=== PATIENT | female | born 1980 | race African-American/Black ===

== ENCOUNTER 2018-09-08 06:05 | Inpatient (IN) ==
[~2018-09-08 06:05] MED LIST: ALBUTEROL 2.5 MG/3 ML NEB RESP TX ONE; DEXAMETHASONE 4 MG/1 ML VIAL IV ONE; FAMOTIDINE 20 MG/2 ML VIAL IV ONE; LACTATED RINGERS 1,000 ML IV SCH; LORazepam 0.5 MG TABLET PO ONE; ONDANSETRON 4 MG/2 ML VIAL IV ONE; SCOPOLAMINE 1.5 MG PATCH TRANSDERM ONE
[2018-09-08] MEDS ORDERED: LIDOCAINE 1%/EPI INJ 20 ML VIAL ONE (06:31)
[2018-09-08] MEDS ORDERED: DEXAMETHASONE 4 MG/1 ML VIAL IV ONE (07:00)
[2018-09-08] MEDS ORDERED: LORazepam 1 MG TABLET ONE (08:39)
[2018-09-08] MEDS ORDERED: SCOPOLAMINE 1.5 MG PATCH TRANSDERM ONE (08:39)
[2018-09-08] MEDS ORDERED: FAMOTIDINE 20 MG/2 ML VIAL IV ONE (08:40)
[2018-09-08] MEDS ORDERED: ONDANSETRON 4 MG/2 ML VIAL ONE ×2 (08:43→12:10)
[2018-09-08] MEDS ORDERED: LORazepam 0.5 MG TABLET ONE (08:46)
[2018-09-08] MEDS ORDERED: cefTRIAXone 1,000 MG in SYRINGE 1 EACH IV ONE (10:35)
[2018-09-08] MEDS ORDERED: cefTRIAXone 1,000 MG VIAL ONE (10:35)
[2018-09-08] MEDS ORDERED: MORPHINE 4 MG/1 ML VIAL IV PRN (11:23)
[2018-09-08] MEDS ORDERED: ALBUTEROL 2.5 MG/3 ML NEB RESP TX PRN (11:32)
[2018-09-08] MEDS ORDERED: CETIRIZINE 10 MG TABLET PO PRN (11:32)
[2018-09-08] MEDS ORDERED: ALBUTEROL SULFATE 2.5 MG IH PRN (11:32)
[2018-09-08] MEDS ORDERED: ALBUTEROL 1.25 MG/3 ML NEB RESP TX ONE ×2 (11:56→12:16)
[2018-09-08] MEDS ORDERED: HYDROmorphone 2 MG/1 ML VIAL ONE (12:10)
[2018-09-08] MEDS ORDERED: ONDANSETRON 4 MG/2 ML VIAL IV PRN (12:15)
[2018-09-08] MEDS: HYDROmorphone 2 MG/1 ML VIAL IV PRN ×2 (12:15→12:35)
[2018-09-08] MEDS ORDERED: MIDAZOLAM 2 MG/2 ML VIAL ONE ×2 (14:07→14:09)
[2018-09-08] MEDS ORDERED: SEVOFLURANE 1 UNIT/15 MINUTE INH ONE (14:07)
[2018-09-08] MEDS ORDERED: PROPOFOL 200 MG/20 ML VIAL IV ONE (14:07)
[2018-09-08] MEDS ORDERED: MINERAL OIL/PETROLATUM OPH OINT 3.5 GM TUBE ONE (14:07)
[2018-09-08] MEDS ORDERED: fentaNYL 100 MCG/2 ML VIAL ONE (14:07)
[2018-09-08] MEDS ORDERED: METOPROLOL TARTRATE 5 MG/5 ML VIAL IV ONE (14:08)
[2018-09-08] MEDS ORDERED: ROCURONIUM 100 MG/10 ML VIAL IV ONE (14:08)
[2018-09-08] MEDS ORDERED: SUCCINYLCHOLINE 200 MG/10 ML VIAL ONE (14:08)
[2018-09-08] MEDS ORDERED: LACTATED RINGERS 1,000 ML IV ONE (14:08)
[2018-09-08] MEDS ORDERED: hydrALAZINE 20 MG/1 ML VIAL ONE (14:08)
[2018-09-08] MEDS: LACTATED RINGERS 1,000 ML IV SCH (15:04)
[2018-09-08] MEDS: ONDANSETRON 4 MG/2 ML VIAL IV PRN (15:17)
[2018-09-08] MEDS: ACETAMINOPHEN/CODEINE 300-30 MG TABLET PO PRN (19:28)
[2018-09-08] MEDS: CALCIUM CARBONATE CHEW 500 MG TABLET PO SCH (20:52)
[2018-09-08] MEDS: FAMOTIDINE 20 MG TABLET PO SCH (20:54)
[2018-09-08] MEDS: QUEtiapine 25 MG TABLET PO SCH (20:55)
[2018-09-08] MEDS: ACYCLOVIR 200 MG CAPSULE PO SCH (20:55)
[2018-09-08] MEDS: OXcarbazepine 300 MG TABLET PO SCH (20:56)
[2018-09-08] MEDS: DEXAMETHASONE 4 MG/1 ML VIAL IV SCH (20:56)
[2018-09-08] MEDS: cefTRIAXone 1,000 MG in SYRINGE 1 EACH IV SCH (21:35)
[2018-09-09] MEDS: ALBUTEROL/IPRATROPIUM 3 ML NEB RESP TX SCH ×4 (00:35→19:18)
[2018-09-09] MEDS: ACETAMINOPHEN/CODEINE 300-30 MG TABLET PO PRN ×2 (01:41→08:03)
[2018-09-09] MEDS: ONDANSETRON 4 MG/2 ML VIAL IV PRN (01:42)
[2018-09-09] MEDS: DEXAMETHASONE 4 MG/1 ML VIAL IV SCH ×2 (04:04→12:11)
[2018-09-09] MEDS ORDERED: ACYCLOVIR 400 MG PO SCH (09:00)
[2018-09-09] MEDS: POTASSIUM CHLORIDE 10 MEQ TABLET PO SCH (09:38)
[2018-09-09] MEDS: CHOLECALCIFEROL 1,000 UNIT TABLET PO SCH (09:39)
[2018-09-09] MEDS: CALCIUM CARBONATE CHEW 500 MG TABLET PO SCH ×2 (09:39→21:20)
[2018-09-09] MEDS: QUEtiapine 25 MG TABLET PO SCH ×2 (09:39→21:21)
[2018-09-09] MEDS: FAMOTIDINE 20 MG TABLET PO SCH ×2 (09:39→21:21)
[2018-09-09] MEDS: OXcarbazepine 300 MG TABLET PO SCH ×2 (09:39→21:21)
[2018-09-09] MEDS: MONTELUKAST 10 MG TABLET PO SCH (09:39)
[2018-09-09] MEDS: ACYCLOVIR 200 MG CAPSULE PO SCH ×2 (09:40→21:20)
[2018-09-09] MEDS: PANTOPRAZOLE 40 MG TABLET PO SCH (09:40)
[2018-09-09] MEDS: TRIAMTERENE/HCTZ 37.5-25 MG TABLET PO SCH (09:40)
[2018-09-09] MEDS: cefTRIAXone 1,000 MG in SYRINGE 1 EACH IV SCH (09:42)
[2018-09-09] MEDS: FLUTICASONE 50 MCG NASAL SPRAY 16 GM BOTTLE BOTH NARES SCH (09:43)
[2018-09-09] MEDS ORDERED: ONDANSETRON 4 MG TABLET PO PRN (12:42)
[2018-09-09] MEDS: AMOXICILLIN/CLAV 875 MG TABLET PO SCH (21:20)
[2018-09-09] MEDS: DEXAMETHASONE 4 MG TABLET PO SCH (21:21)
[2018-09-10] MEDS: ACETAMINOPHEN/CODEINE 300-30 MG TABLET PO PRN ×2 (00:28→11:12)
[2018-09-10] MEDS: ALBUTEROL/IPRATROPIUM 3 ML NEB RESP TX SCH ×3 (01:20→12:20)
[2018-09-10] MEDS ORDERED: ALBUTEROL/IPRATROPIUM 3 ML NEB RESP TX ONE (08:57)
[2018-09-10 09:05] LABS: Hematocrit 34.9 VOL% (35.7-47.0); Hemoglobin 10.7 GM/DL (12.0-16.0); Immature Granulocytes % 0.4 %; Immature Granulocytes Absolute 0.02 #; Lymphocytes # 0.8 10*3/uL (1.4-4.0); Lymphocytes % 15.4 % (21.3-54.2); Mean Corpuscular HGB Conc 30.7 GM/DL (32-36); Mean Corpuscular Hemoglobin 29 PG (27-34); Mean Corpuscular Volume 93.1 FL (87-102); Mean Platelet Volume 10.6 FL (9.6-12.0); Monocytes # 0.3 10*3/uL (0.11-0.8); Monocytes % 5.2 % (1.7-12.7); Neutrophils # 3.9 10*3/uL (1.4-7.4); Platelet Count 213 T/CUMM (130-400); Red Blood Count 3.75 MC/CUMM (3.8-5.5); Red Cell Distribution Width 13.6 % (9.3-17.3)
[2018-09-10 09:28] LABS: Calcium 8.6 MG/DL (8.5-10.1); Osmolality,Calculated 282.5 MOS/KG (273-304); Potassium 3.7 MMOL/L (3.5-5.1)
[2018-09-10 10:01] LABS: ABG Base Excess 0.2 MMOL/L (-2.5-2.5); ABG HCO3 24.6 MMOL/L (20-26); ABG Oxygen Saturation 97.3 % (95-100); ABG PCO2 37.3 MM HG (35-48); ABG PH 7.422 (7.35-7.45); ABG PO2 93.1 MM HG (80-95); ABG TCO2 21.9 MMOL/L (23-27)
[2018-09-10] MEDS: TRIAMTERENE/HCTZ 37.5-25 MG TABLET PO SCH (11:10)
[2018-09-10] MEDS: PANTOPRAZOLE 40 MG TABLET PO SCH (11:10)
[2018-09-10] MEDS: AMOXICILLIN/CLAV 875 MG TABLET PO SCH (11:11)
[2018-09-10] MEDS: CALCIUM CARBONATE CHEW 500 MG TABLET PO SCH (11:11)
[2018-09-10] MEDS: FAMOTIDINE 20 MG TABLET PO SCH (11:11)
[2018-09-10] MEDS: CHOLECALCIFEROL 1,000 UNIT TABLET PO SCH (11:11)
[2018-09-10] MEDS: MONTELUKAST 10 MG TABLET PO SCH (11:11)
[2018-09-10] MEDS: QUEtiapine 25 MG TABLET PO SCH (11:12)
[2018-09-10] MEDS: OXcarbazepine 300 MG TABLET PO SCH (11:12)
[2018-09-10] MEDS: ACYCLOVIR 200 MG CAPSULE PO SCH (11:12)
[2018-09-10] MEDS: DEXAMETHASONE 4 MG TABLET PO SCH (11:12)
[2018-09-10] MEDS: POTASSIUM CHLORIDE 10 MEQ TABLET PO SCH (11:13)
[2018-09-10] MEDS: FLUTICASONE 50 MCG NASAL SPRAY 16 GM BOTTLE BOTH NARES SCH (11:13)
[2018-09-10] MEDS: LACTATED RINGERS 1,000 ML IV SCH (11:17)
[2018-09-10 12:44] VITALS: BP 151/87
== END 2018-09-10 18:05 | disposition home or self-care (01) | DRG 626 ==
LOC: N.OR 06:05 → N.SDSINP 06:07 → N.4E 13:30
PROVIDERS: ADMIT Otolaryngology; ATTEND Otolaryngology